=== PATIENT | male | born 1965 | race Caucasian/White ===

== ENCOUNTER 2019-09-25 12:20 | Inpatient (IN) | payer OTHER ==
--- NOTE | 2019-09-25 14:52 | BHS.RME ---
Substance Use & Tx History - Substance Use History Opiates (Heroin) Substance amount: 6 bags Frequency of use: Daily Substance route: Inhalation (ex: sniffing or snorting) Date of Last Use: 09/24/19 Physical/Psych/Mental Status - Behavior General Behavior: Decreased activity - Cooperativeness Cooperativeness: Cooperative - Thinking Thought Processes: Loosened - Physical Health Problems Is patient presently having any pain?: Yes (stomach) Does patient presently have any injuries (include location): No Does patient currently have a fever: No COWS - Scale Resting Pulse: 0= [place] 80 or Below Sweatin= Chills/Flushing Restless Observation: 1= Difficult to Sit Still Pupil Size: 2= Moderately Dilated Bone or Joint Aches: 1= Mild Discomfort Runny Nose/ Eye Tearin= Runny Nose/Eyes GI Upset > 30mins: 1= Stomach Cramp Tremor Observation: 1= Tremor [place], Not Seen Yawning Observation: 0= None Anxiety or Irritability: 1=Feels Anxious/Irritable Goose Flesh Skin: 0=Smooth Skin COWS Score: 10
[2019-09-25 16:21] VITALS: BMI 19.3
--- NOTE | 2019-09-25 17:03 | HP ---
COWS - Scale Resting Pulse: 0= [place] 80 or Below (HR: 90) Sweatin=Flushed/Facial Moisture Restless Observation: 1= Difficult to Sit Still Pupil Size: 2= Moderately Dilated (Pupils = 4 mm) Bone or Joint Aches: 1= Mild Discomfort Runny Nose/ Eye Tearin= Runny Nose/Eyes GI Upset > 30mins: 2= Nausea/Diarrhea (Nausea w/o diarrhea) Tremor Observation: 2= Slight Tremor Visible Yawning Observation: 0= None Anxiety or Irritability: 2=Irritable/Anxious Goose Flesh Skin: 0=Smooth Skin COWS Score: 14 CIWA Score - Admission Criteria OASAS Guidelines: Admission for Medically Managed Detox: Requires at least one of the followin. CIWA greater than 12 2. Seizures within the past 24 hours 3. Delirium tremens within the past 24 hours 4. Hallucinations within the past 24 hours 5. Acute intervention needed for co occurring medical disorder 6. Acute intervention needed for co occurring psychiatric disorder 7. Severe withdrawal that cannot be handled at a lower level of care (continued vomiting, continued diarrhea, abnormal vital signs) requiring intravenous medication and/or fluids 8. Admitting History and Physical - Smoking History Smoking history: Never smoked Admission ROS [facility] Chief Complaint: "I'm here to get off drugs" Allergies/Adverse Reactions: Allergies Allergy/AdvReac Type Severity Reaction Status Date / Time No Known Allergies Allergy Verified 09/25/19 16:16 History of Present Illness: 54 yo presents w/ withdrawal symptoms seeking detox. Patient seen in [facility] earlier today for (R) neck mass w/ CT indicating solid and cystic component. patent airway. 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 Heroin overdose 5 months go. Denies seizures. Utox: +KATHARINA/MOP AMANDA: 0.0 Patient states states never never in a detox program in past. Has been on Subxoxne States was on MMTP. Left 1.5 months ago - [facility] ([address] Denies Narcan kit @ home. Discussed the importance and encouraged obtain post discharge Heroin use began at age 21. Currently using 6-7 bags/day - sniff. Cocaine use began at age 21. Currently uses $20 - sniffs 1x/wk Denies nicotine uses. PMHx: Neck mass x 2 months MHx: Depression. Denies MH meds. Denies thoughts of harming self or others. Does not want to see a psychiatrist. SHx: Homeless. Unemployed. Denies current legal issues. Patient Name: Vic Stauffer Date: 1965 Address: [address] [place] [id number] Sex: Male Rx Written Rx Dispensed Drug Quantity Days Supply Prescriber Name 12/12/2018 12/12/2018 buprenorphine-naloxone 8-2 mg sl film 45 15 Kasey Villegas MD 11/28/2018 11/28/2018 buprenorphine-naloxone 8-2 mg sl film 45 15 Kasey Villegas MD 11/21/2018 11/21/2018 buprenorphine-naloxone 8-2 mg sl film 21 7 Kasey Villegas MD 11/14/2018 11/14/2018 buprenorphine-naloxone 8-2 mg sl film 21 7 Kasey Villegas MD 11/04/2018 11/04/2018 buprenorphine-naloxone 8-2 mg sl film 9 3 LaksDon MD 10/23/2018 10/23/2018 buprenorphine-naloxone 8-2 mg sl film 9 3 LaksDon MD 10/15/2018 10/15/2018 buprenorphine-naloxone 8-2 mg sl film 9 3 LaksDon MD Patient Name: Vic Stauffer Date: 1965 Address: [address] [place] [id number] Sex: Male Rx Written Rx Dispensed Drug Quantity Days Supply Prescriber Name 10/02/2018 10/03/2018 suboxone 8 mg-2 mg sl film 7 7 Cedrick Beatty Exam Limitations: No Limitations - Ebola screening Have you traveled outside of the country in the last 21 days: No Have you had contact with anyone from an Ebola affected area: No Have you been sick,other than usual withdrawal symptoms: No Do you have a fever: No - Review of Systems Constitutional: Diaphoresis, Weight Stable EENT: reports: Nose Congestion, Dental Problems (Brooken teeth. No pain. Chews and swallows ok) Respiratory: reports: No Symptoms reported Cardiac: reports: No Symptoms Reported GI: reports: Constipated (Last BM hard, brown), Nausea : reports: No Symptoms Reported Musculoskeletal: reports: Back Pain (Chronic achy mid back pain. "5". Increases w/ walking. Improves w/ laying down) Integumentary: reports: No Symptoms Reported Neuro: reports: No Symptoms reported Endocrine: reports: Increased Thirst Hematology: reports: No Symptoms Reported Psychiatric: reports: Judgement Intact, Orientated x3, Agitated, Depressed ( Denies thoughts of harming self or others) Patient History - Patient Medical History Hx Asthma: No Hx Chronic Obstructive Pulmonary Disease (COPD): No Hx Cardiac Disorders: No Hx Hypertension: No Hx Seizures: No Hx Diabetes: No Hx Gastrointestinal Disorders: No Hx Genitourinary Disorders: No Hx Sexually Transmitted Disorders: No Hx Renal Disease (ESRD): No Hx Depression: Yes Hx Suicide Attempt: No Hx Schizophrenia: No - Patient Surgical History Past Surgical History: No Hx Neurologic Surgery: No Hx Cataract Extraction: No Hx Cardiac Surgery: No Hx Lung Surgery: No Hx Breast Surgery: No Hx Breast Biopsy: No Hx Abdominal Surgery: No Hx Appendectomy: No Hx Cholecystectomy: No Hx Genitourinary Surgery: No Hx Section: No Hx Orthopedic Surgery: No Anesthesia Reaction: No - PPD History Previous Implant?: Yes Documented Results: Negative w/o proof Implanted On Prior [facility] Admission?: Yes PPD to be Administered?: Yes - Reproductive History Patient : No - Smoking Cessation Smoking history: Former smoker Have you smoked in the past 12 months: Yes Aproximately how many cigarettes per day: 5 (Stopped 1 month ago) Hx Chewing Tobacco Use: No Initiated information on smoking cessation: Yes 'Breaking Loose' booklet given: 09/25/19 - Substance & Tx. History Hx Substance Use: Yes Substance Use Type: Cocaine, Heroin Hx Substance Use Treatment: Yes (Suboxone and MMTP in past) - Substances abused Heroin Substance route: Inhalation Frequency: Daily Amount used: 10 bags Age of first use: 21 Date of last use: 09/24/19 Admission Physical Exam BHS - Vital Signs Vital Signs: Vital Signs - 24 hr 09/25/19 16:17 Temperature 97.1 F L Pulse Rate 75 Respiratory 19 Rate Blood Pressure 163/100 - Physical General Appearance: Yes: Mild Distress, Thin, Tremorous (Mild tremors), Irritable, Sweating (Increased facial moisture), Anxious HEENTM: Yes: EOMI, Hearing grossly Normal, ANNAMARIA (Pupils = 4 mm), Pharynx Normal Respiratory: Yes: Lungs Clear (Pulse Ox = 98 %), Normal Breath Sounds, No Respiratory Distress Neck: Yes: Supple, Mass (Round, firm, slightly mobile circular mass approx 6 cm diameter @ (R) sub-mandibular/neck area. Non-tender, no increased warmth.) Breast: Yes: Breast Exam Deferred Cardiology: Yes: Regular Rhythm, Regular Rate (HR: 80), S1, S2 Abdominal: Yes: Non Tender, Flat, Soft, Increased Bowel Sounds Genitourinary: Yes: Within Normal Limits Back: Yes: Normal Inspection Musculoskeletal: Yes: full range of Motion, Gait Steady Extremities: Yes: Normal Capillary Refill, Normal Inspection, Tremors (Mild tremors visible) Neurological: Yes: neck band maker II-XII NML intact, Fully Oriented, Alert, Motor Strength 5/5 (BHS =), Normal Response Integumentary: Yes: Normal Color, Warm, Moist (Increased facial moisture) Lymphatic: Yes: Within Normal Limits - Diagnostic (1) Mass in neck Current Visit: Yes Status: Chronic Comment: CT scan done in [facility] (2) Opioid dependence with withdrawal Current Visit: Yes Status: Acute (3) Cocaine abuse, uncomplicated Current Visit: Yes Status: Chronic (4) Nicotine dependence, unspecified, in remission Current Visit: Yes Status: Chronic Qualifiers: Nicotine product type: cigarettes Qualified Code(s): F17.211 - Nicotine dependence, cigarettes, in remission Comment: Stopped smoking in August, (5) Abnormal CT scan, lung Current Visit: Yes Status: Suspected Comment: Lung CT report, @ [facility], indicates that patient has 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
[2019-09-25] MEDS ORDERED: ACETAMINOPHEN 325 MG TABLET (FP) PO PRN ×2 (17:52)
[2019-09-25] MEDS ORDERED: MELATONIN 5 MG TABLETS PO PRN (17:52)
[2019-09-25] MEDS ORDERED: MAG HYDROX/AL HYDROX/SIMETH 30 ML UNIT-DOSE CUP PO PRN (17:52)
[2019-09-25] MEDS ORDERED: MAGNESIUM HYDROX 2400MG/30ML ORAL SUSPENSION 30 ML CUP PO PRN (17:52)
[2019-09-25] MEDS ORDERED: MENTHOL/PHENOL 1 EACH UD MM PRN (17:52)
[2019-09-25] MEDS ORDERED: BISMUTH SUBSALICYLATE 524 MG/30 ML UD PO PRN (17:52)
[2019-09-25] MEDS ORDERED: IBUPROFEN 400 MG TABLET (FP) PO PRN (17:52)
[2019-09-25] MEDS ORDERED: NICOTINE POLACRILEX 2 MG GUM BUC PRN (17:52)
[2019-09-25] MEDS ORDERED: guaiFENesin 200 MG/10 ML 10 ML UNIT-DOSE CUPS PO PRN (17:52)
[2019-09-25] MEDS ORDERED: METHOCARBAMOL 500 MG TABLET PO PRN (17:52)
[2019-09-25] MEDS ORDERED: MAGNESIUM CITRATE 300 ML BOTTLE PO PRN (17:52)
[2019-09-25] MEDS ORDERED: cloNIDine HCL 0.1 MG TABLET PO PRN (17:57)
[2019-09-25] MEDS ORDERED: METHADONE HCL 10 MG TABLET (FOR DETOX USE ONLY) PO ONE (18:30)
[2019-09-25] MEDS ORDERED: cloNIDine HCL 0.1 MG TABLET PO ONE (19:00)
[2019-09-25] MEDS: THIAMINE HCL 100 MG TABLET (FP) PO SCH (22:15)
[2019-09-26] MEDS ORDERED: METHADONE HCL 5 MG TABLET (FOR DETOX USE ONLY) PO ONE (10:00)
[2019-09-26] MEDS: PRENATAL VITAMINS W/ FOLIC ACID TABLET (FP) PO SCH (11:31)
--- NOTE | 2019-09-26 12:09 | PN ---
BHS COWS - Scale Resting Pulse: 0= [place] 80 or Below Sweatin= Chills/Flushing Restless Observation: 1= Difficult to Sit Still Pupil Size: 1= Pupils >than Normal Bone or Joint Aches: 1= Mild Discomfort Runny Nose/ Eye Tearin= Nasal Congestion GI Upset > 30mins: 1= Stomach Cramp Tremor Observation of Outstretched Hands: 1= Tremor [place], Not Seen Yawning Observation: 1= 1-2x During Session Anxiety or Irritability: 1=Feels Anxious/Irritable Goose Flesh Skin: 0=Smooth Skin COWS Score: 9 BHS Progress Note (SOAP) Subjective: pt states he is feeling fine. No complaints O: Vital Signs - 24 hr 09/25/19 09/25/19 09/25/19 16:17 18:19 20:40 Temperature 97.1 F L 97.1 F L 98.8 F Pulse Rate 75 75 78 Respiratory 19 19 16 Rate Blood Pressure 163/100 163/100 127/74 09/26/19 09/26/19 09/26/19 00:33 03:49 07:24 Temperature 95.9 F L Pulse Rate 65 Respiratory 18 18 18 Rate Blood Pressure 129/78 09/26/19 09:20 Temperature 98.8 F Pulse Rate 56 L Respiratory 16 Rate Blood Pressure 141/93 intermittently increased BP a/p: continue detox protocol monitor BP labs ordered
--- NOTE | 2019-09-26 12:12 | EKG ---
Test Reason : Blood Pressure : / mmHG Vent. Rate : 080 BPM Atrial Rate : 080 BPM P-R Int : 160 ms QRS Dur : 086 ms QT Int : 378 ms P-R-T Axes : 074 025 069 degrees QTc Int : 435 ms NORMAL SINUS RHYTHM POSSIBLE LEFT ATRIAL ENLARGEMENT VOLTAGE CRITERIA FOR LEFT VENTRICULAR HYPERTROPHY NO PREVIOUS ECGS AVAILABLE Confirmed by MARGARITA PATEL MD ([id number]) on 09/26/2019 12:12:34 PM Referred By: LINDA Confirmed By:MARGARITA PATEL MD
[2019-09-26] MEDS: THIAMINE HCL 100 MG TABLET (FP) PO SCH (22:22)
[2019-09-27 09:47] VITALS: BP 129/67; PULSE 73; TEMP 99
[2019-09-27] MEDS ORDERED: METHADONE HCL 10 MG TABLET (FOR DETOX USE ONLY) PO ONE (10:00)
--- NOTE | 2019-09-27 11:09 | DS ---
[facility] Detox Discharge Summary Admission Date: 09/25/19 Discharge Date: 09/27/19 - History Present History: Opioid Dependence Pertinent Past History: Pt states he wants to leave now. Came in 48 hours ago. Says he was in a methadone program on [address] Last dosing was several weeks ago. will return there for possible readmission. Vital Signs - 24 hr 09/26/19 09/26/19 09/26/19 14:42 16:56 20:42 Temperature 98.2 F 97.9 F 99.1 F Pulse Rate 55 L 63 77 Respiratory 16 18 18 Rate Blood Pressure 125/72 118/68 125/72 09/27/19 09/27/19 09/27/19 00:42 05:46 09:46 Temperature 98.2 F 99.0 F Pulse Rate 58 L 73 Respiratory 18 18 18 Rate Blood Pressure 109/82 129/67 no labs - Physical Exam Results Vital Signs: Vital Signs Temperature 99.0 F 09/27/19 09:46 Pulse Rate 73 09/27/19 09:46 Respiratory Rate 18 09/27/19 09:46 Blood Pressure 129/67 09/27/19 09:46 O2 Sat by Pulse Oximetry (%) - Treatment Hospital Course: Detox Protocol Followed - Medication Discharge Medications: Ambulatory Orders NK [No Known Home Medication] 09/25/19
[2019-09-27] MEDS: PRENATAL VITAMINS W/ FOLIC ACID TABLET (FP) PO SCH (11:14)
[2019-09-28] MEDS ORDERED: METHADONE HCL 10 MG TABLET (FOR DETOX USE ONLY) PO ONE (10:00)
[2019-09-29] MEDS ORDERED: METHADONE HCL 5 MG TABLET (FOR DETOX USE ONLY) PO ONE (06:00)
== END 2019-09-27 12:58 | disposition left against medical advice (07) | DRG 770 ==
LOC: YASAS 12:20 → Y6N 16:44
PROVIDERS: ADMIT Allergy & Immunology; ATTEND Allergy & Immunology
PROC: HZ2ZZZZ Detoxification Services for Substance Abuse Treatment (ICD-10-PCS; principal; 2019-09-25)
DX: F11.23 Opioid dependence with withdrawal (principal); F14.10 Cocaine abuse, uncomplicated; F32.9 Major depressive disorder, single episode, unspecified; F17.211 Nicotine dependence, cigarettes, in remission; R22.1 Localized swelling, mass and lump, neck; R91.8 Other nonspecific abnormal finding of lung field; Z59.0 Homelessness
CPT/HCPCS: 71046-TC-FY; 93005; 93010; J0735